=== PATIENT | female | born 1955 | race Caucasian/White ===

== ENCOUNTER 2023-12-09 06:33 | Observation (INO) ==
--- NOTE | 2023-12-06 08:55 | Anesthesiology Consultation ---
Date of Service December 06, 2023 Assessment & Plan (1) Encounter for pre-operative examination: - Case discussed in detail with Dr. Connelly who advised check CBC with diff, type and screen and EKG STAT am DOS. Alexandru with blood bank advised will need blood type checked DOS and he will have an extra unit of platelets available for DOS. Surgeon's office made aware of above plan and that if Dr. Mendez would like more than 1 unit of platelets available their office will need to notify myself to relay to blood bank or speak directly with blood bank. OR made aware to bring patient in one hour early per Alexandru with blood bank. Patient is otherwise acceptable to proceed pending above DOS. - thrombocytopenia: platelets 09/2023 were at 53k. No CBC with diff received from [facility] with other labs and per electromyographic technician at [facility] there is not an updated CBC since 10/08/2023. The surgeon's office advised patient forgot to have labs done and cannot have them done today. - Per test director on 11/28/23: No known infectious disease contacts, current infectious disease symptoms in past 10 days or COVID positive test result in the past 30 days. Chart Review Chart Review: Patient NOT seen in Pre Admission Testing History Surgery Operation Date: 12/09/23 09:30 Proposed Procedures p Bilateral Breast Mastectomy with Right Axillary [place] Node Biopsy, Possible Left Axillary [place] Node Biopsy - Khadar Mendez, Height/Weight Height: 5 ft 3 in Weight: 91.172 kg Allergies Allergy/AdvReac Type Severity Reaction Status Date / Time adhesive Allergy Unknown blisters, Verified 11/28/23 13:24 redness Penicillins Allergy Unknown Rash Verified 11/28/23 13:24 Medications Home Medications Medication Instructions Recorded Confirmed Last Taken aspirin 81 mg tablet,delayed 81 mg PO DAILY 09/30/23 11/28/23 Unknown release calcium carb-vit D3-minerals 600 1 tab PO DAILY 09/30/23 11/28/23 Unknown mg calcium-200 unit tablet levothyroxine 50 mcg capsule 50 mcg PO QAM 09/30/23 11/28/23 Unknown rosuvastatin 5 mg tablet 5 mg PO QAM 09/30/23 11/28/23 Unknown sucralfate 1 gram tablet 1 g PO BID 09/30/23 11/28/23 Unknown biotin 5 mg capsule 5 mg PO DAILY 11/28/23 11/28/23 Unknown Past Medical History Medical History (Updated 12/06/23 @ 08:57 by Cheyanne Brown PA-C) Arthritis Breast cancer right, 09/2023 and on left 2003 GERD (gastroesophageal reflux disease) Hyperlipidemia Hypothyroidism Past Family History Family History Father Cancer Diabetes Brother Cancer Mother Heart disease Grandfather Stroke Past Surgical History Surgical History Hx of appendectomy (~1980) Hx of colonoscopy Hx of lymph node excision (2003) left S/P lumpectomy of breast (2003) Tubal ligation status (~1979) Social History Smoking Status: Never smoker Do You Dip or Chew Tobacco: No Hx Alcohol Use: No Hx Substance Use: No substance use type: does not use Testing Laboratory Results 11/02/23 SODIUM: 144 POTASSIUM: 4.0 CHLORIDE: 108 CO2: 26 BUN: 13 CREATININE: 0.9 GLUCOSE: 103
[~2023-12-09 06:33] MED LIST: ALLERGY Noted to ORDERED Medication SCH
[2023-12-09] MEDS: LACTATED RINGER'S 1,000 ML IV SCH ×2 (07:33→20:59)
[2023-12-09] MEDS: LR 15ML/HR IV SCH (07:33)
--- NOTE | 2023-12-09 11:25 | Nuclear Medicine Report ---
LYMPHOSCINTIGRAPHY CLINICAL HISTORY: Bilateral breast cancer. PROCEDURE: Using standard sterile technique, 4 intradermal and one deep injection of 615.52 uCi of Ly mphoseek was placed in the right breast. The patient tolerated the procedure well. There were no imme diate complications. The patient was subsequently transported to the surgical suite. No imaging was o btained at the referring physician's request. IMPRESSION: Injection of 615.52 uCi of Lymphoseek in the right breast. ACT 112: Negative or not required by law. Electronically signed by: Devang Chavez M.D. 12/09/2023 11:23 AM
--- NOTE | 2023-12-09 11:58 | Nuclear Medicine Report ---
LYMPHOSCINTIGRAPHY CLINICAL HISTORY: Bilateral breast cancer. PROCEDURE: Using standard sterile technique, 4 intradermal and one deep injection of 607.54 uCi of Ly mphoseek was placed in the left breast. The patient tolerated the procedure well. There were no immed iate complications. The patient was subsequently transported to the surgical suite. Postprocedural im aging demonstrates left axillary davy uptake. An indelible marker was placed on the skin superficial to one of the axillary lymph nodes. IMPRESSION: Completed injection of Lymphoseek in the left breast. Lymph nodes with tracer uptake were noted within the axilla. A marker was used to anya the skin superficial to one of the lymph nodes. ACT 112: Negative or not required by law. Electronically signed by: Devang Chavez M.D. 12/09/2023 11:57 AM
--- NOTE | 2023-12-09 12:47 | Communication Note ---
Date of Service: December 09, 2023 12/06/2023-EKG-SR@ 65
[2023-12-09] MEDS ORDERED: HYDROmorphone INJ 1 MG/ML SYRINGE IV PRN (12:52)
[2023-12-09] MEDS ORDERED: ONDANSETRON INJ 2 MG/ML 2 ML VIAL IV PRN ×2 (12:52→20:03)
[2023-12-09] MEDS ORDERED: FLUMAZENIL 0.1 MG/1 ML 10 ML VIAL IV PRN (12:52)
[2023-12-09] MEDS ORDERED: PROMETHAZINE HCL 6.25 MG in SODIUM CHLORIDE 0.9% 50 ML IV PRN (12:52)
[2023-12-09] MEDS ORDERED: fentaNYL citrate PF 100 MCG/2 ML VIAL IV PRN (12:52)
[2023-12-09] MEDS ORDERED: ePHEDrine sulfate 50 MG/ML AMP IV PRN (12:52)
[2023-12-09] MEDS ORDERED: NALOXONE HCL 0.4 MG/1 ML VIAL/CARP IV PRN (12:52)
[2023-12-09] MEDS ORDERED: LABETALOL HCL IV 5 MG/ML 20ML IV PRN (12:52)
[2023-12-09] MEDS ORDERED: ATROPINE SULFATE 0.1 MG/ML 10ML SYR IV PRN (12:52)
--- NOTE | 2023-12-09 15:10 | History & Physical Report ---
Date of Service December 09, 2023 Assessment & Plan (1) Breast cancer, right: Plan: 5y/o female with bilateral breast invasive ductal carcinoma, positive right lymph node on biopsy, lymphoscintigraphy shows bilateral axillary uptake. plan for bilateral breast mastectomy with right axillary sentinel lymph node biopsy, and possible left axillary lymph node biopsy risks discussed to include but not limited to bleeding, infection, positive margins, recurrence, damage to surrounding structures, seroma/hematoma, need for future or more extensive surgery, and risks of anesthesia return precautions given, call with questions or concerns (2) Malignant neoplasm of upper-outer quadrant of left breast in female, estrogen receptor positive: (3) History of left breast cancer: (4) Hypothyroidism: (5) Hyperlipemia: (6) GERD (gastroesophageal reflux disease): History of Present Illness Primary Care Provider: Prabhakar Madrid PA-C 68-year-old female with bilateral breast cancer. History of left breast lumpectomy and axillary dissection followed by chemotherapy and radiation therapy. She presented with a mass in her right breast, biopsy-proven invasive ductal carcinoma, ER positive, SD negative, HER2/daniel negative. She also had a positive lymph node following core biopsy on the right axilla. On the left she had an additional lesion biopsied which showed infiltrative ductal carcinoma, ER/SD positive, HER2/daniel negative. She is otherwise healthy for age, and takes a baby aspirin but no other blood thinners. She does have some mild lymphedema on the left. She underwent lymphoscintigraphy this morning which confirmed uptake in both axilla Allergies Allergy/AdvReac Type Severity Reaction Status Date / Time adhesive Allergy Unknown blisters, Verified 12/09/23 07:02 redness Penicillins Allergy Unknown Rash Verified 12/09/23 07:02 Home Medications Medication Instructions Recorded Confirmed Type aspirin 81 mg tablet,delayed 81 mg PO DAILY 09/30/23 12/09/23 History release calcium carb-vit D3-minerals 600 1 tab PO DAILY 09/30/23 12/09/23 History mg calcium-200 unit tablet (Calcium 600 + Minerals) levothyroxine 50 mcg capsule 50 mcg PO QAM 09/30/23 12/09/23 History rosuvastatin 5 mg tablet 5 mg PO QAM 09/30/23 12/09/23 History sucralfate 1 gram tablet (Carafate) 1 g PO BID 09/30/23 12/09/23 History biotin 5 mg capsule 5 mg PO DAILY 11/28/23 12/09/23 History Past Med/Surg History Problem List Encounter for pre-operative examination Malignant neoplasm of upper-outer quadrant of left breast in female, estrogen receptor positive Abnormal MRI, breast History of left breast cancer Breast cancer, right Breast cancer GERD (gastroesophageal reflux disease) Arthritis Hyperlipemia Hypothyroidism Medical History Arthritis Breast cancer right, 09/2023 and on left 2003 GERD (gastroesophageal reflux disease) Hyperlipidemia Hypothyroidism Surgical History Hx of appendectomy (~1980) Hx of colonoscopy Hx of lymph node excision (2003) left S/P lumpectomy of breast (2003) Tubal ligation status (~1979) Family History Father Cancer Diabetes Brother Cancer Mother Heart disease Grandfather Stroke Social History Smoking Status: Never smoker Second Hand Exposure: No; Do You Dip or Chew Tobacco: No; Tobacco Cessation Education Requested by Patient: No Hx Alcohol Use: No Hx Substance Use: No Preferred Language: Tamazight Communication Ability: Effective 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 Beliefs That Will Affect Care: None marital status: Current Living Situation: Spouse How many Children do You have: 4 Other Information That Helps Us Care for You: No Feels Safe at Home: Yes Safety Concerns: Feels Safe At This Time during the past year weight has: remained stable Assistive Devices: Denture - Upper and Glasses Review of Systems Review of Systems: All systems reviewed & are unremarkable except as noted in HPI & below Physical Exam Constitutional: WD/WN, vitals as above + obese Respiratory: normal respiratory effort, lungs clear to auscultation Cardiovascular: RRR, no murmur, no edema Chest (Breasts): Additional Comments: No dominant or discrete masses palpable in either breast. Scar in left breast from prior lumpectomy. Results & Data Results & Data Vital Signs (Past 12 Hours) Vital Signs Temp Pulse Resp BP Pulse Ox O2 Del Method 12/09/23 07:10 36.5 C 72 20 146/82 H 94 Room Air Laboratory Results Pathology results reviewed Diagnostic Findings PET scan personally viewed and interpreted and agree with the assessment of no distant metastasis PG Care Time/CCT Total # of Minutes Spent Total Time Spent with Patient: Total time spent is greater than 50% in coordination of care (as documented) at patient's floor/unit and/or counseling patient: Coding Level of Care Code 03152 INT INP/OBS CARE 2/55MIN Diagnoses Breast cancer, right C50.911 Malignant neoplasm of upper-outer quadrant of left breast in female, estrogen receptor positive C50.412; Z17.0 History of left breast cancer Z85.3 Hypothyroidism E03.9 Hyperlipemia E78.5 GERD (gastroesophageal reflux disease) K21.9
[2023-12-09] MEDS ORDERED: fentaNYL citrate PF 100 MCG/2 ML VIAL ONE ×2 (15:18→16:12)
[2023-12-09] MEDS ORDERED: MIDAZOLAM HCL 1 MG/ML 2ML VIAL ONE (15:18)
[2023-12-09] MEDS ORDERED: PROPOFOL IV EMULSION 10 MG/ML 20 ML VIAL IV ONE (16:13)
[2023-12-09] MEDS ORDERED: DROPERIDOL 5 MG/2 ML VIAL ONE (16:13)
[2023-12-09] MEDS ORDERED: ONDANSETRON INJ 2 MG/ML 2 ML VIAL ONE ×2 (16:13→18:22)
[2023-12-09] MEDS ORDERED: DEXAMETHASONE SOD INJ 4 MG/ML VIAL ONE (16:13)
[2023-12-09] MEDS ORDERED: ROCURONIUM BROMIDE 10 MG/ML 5 ML VIAL IV ONE (16:13)
[2023-12-09] MEDS ORDERED: LIDOCAINE 2% 2 ML VIAL/AMP(20MG/ML) INFIL ONE (16:13)
[2023-12-09] MEDS ORDERED: HYDROmorphone INJ 2 MG/ML SYR/VIAL ONE (16:25)
[2023-12-09] MEDS ORDERED: SODIUM CHLORIDE 0.9% PF INJ 10 ML VIAL ONE (16:25)
[2023-12-09] MEDS ORDERED: ePHEDrine sulfate 50 MG/5 ML SYR ONE (16:42)
[2023-12-09] MEDS: ceFAZolin 2000MG 2,000 MG/15 ML SYR IV ONE (17:34)
[2023-12-09] MEDS ORDERED: NEOSTIGMINE METHYLSULFATE 1 MG/ML 10ML VIAL ONE (18:42)
[2023-12-09] MEDS ORDERED: GLYCOPYRROLATE 0.2 MG/ML VIAL ONE (18:42)
[2023-12-09] MEDS: BUPIVACAINE 0.5 % 5 MG/1 ML MPF 30ML VIAL ONE (18:51)
[2023-12-09] MEDS: BUPIVACAINE LIPOSOME 1.3% 266 MG/20 ML VIAL ONE (18:51)
--- NOTE | 2023-12-09 19:16 | Operative Report ---
PG Post Operative Report Pre & Post Diagnosis Operation Date: 12/09/23 09:30 Pre-Op Diagnosis: Right Breast Cancer, Malignant neoplasm of upper-outer quadrant of left breast in female Post-Op Diagnosis: Right Breast Cancer, Malignant neoplasm of upper-outer quadrant of left breast in female I identified the patient and participated in the time-out.: Yes Procedure Operation Date: 12/09/23 09:30 Actual Procedures p Bilateral Breast Mastectomy with Right Axillary [place] Node Biopsy(Bilateral) - Garfield Han DO, STORM Surgeon Garfield Han DO, STORM Travel Med Surg Rn Mj Rodriguez Estimated Blood Loss 50 Findings Consistent with Post-Op Diagnosis Unable to localize a sentinel lymph node on the left. Bilateral mastectomies performed. Right axillary sentinel lymph node biopsy performed. Exparel injected, good hemostasis. Specimens Left breast mastectomy Additional left breast tissue Right breast mastectomy Right axillary sentinel lymph nodes Right axillary fat Drains 10 mm JOSE drains bilateral mastectomy beds Anesthesia Type General Complications none Disposition Accompanied Patient To Recovery: No Disposition: Recovery Room Indications 68-year-old female with history of left breast cancer status post lumpectomy with axillary lymph node dissection and radiation, now with new right breast cancer with positive lymph node in the right axilla and biopsy along with new left breast cancer. Plan for bilateral mastectomy with right axillary sentinel lymph node biopsy and possible left axillary sentinel lymph node biopsy. The risks of the procedure were discussed, all questions were answered, and the patient agreed to proceed with surgery as planned. Description of Procedure The patient had initially had a Samantha scouts placed in the right breast prior to electing for mastectomy. The right breast was examined with a Samantha scouts probe and signal was returned. The patient had a sentinel lymph node injection performed in both breasts prior to the procedure. Lymphoscintigraphy was performed to the left due to her history of prior axillary lymph node dissection , and a weakly positive lymph node was identified and marked. The bilateral axilla were examined with a gamma probe and confirmed uptake into the right axilla, but there was minimal signal on the left. The patient was properly identified, consented, and taken to the operating room where she was placed in the supine position. General endotracheal anesthesia was induced. SCDs and a safety belt were placed. Preoperative antibiotics were administered. The patient's bilateral chest and axilla was prepped and draped in the standard sterile fashion. Surgical timeout was performed and all parties were in agreement that this was the correct patient and procedure to be performed and we continued as planned. We began dissection on the left. Transversely oriented elliptical incision was made to encompass the nipple areolar complex. Subcutaneous flaps were raised to the clavicle superiorly, the sternum medially, and the rectus sheath inferiorly. The breast was then taken off the chest wall including the pectoralis fascia from inferior medial to superior lateral. This dissection was then taken down to the lateral chest wall ensuring that we resected the axillary tail of Schmitt. The dissection was completed and the specimen was removed. The specimen was oriented. I then examined the left axilla with the gamma probe and was unable to localize any specific left axillary lymph node. The wound was irrigated and hemostasis achieved. The wound was packed and we turned our attention to the right side. A transversely oriented elliptical incision was made that encompassed the n ipple-arreolar complex on the right. Flaps were raised to the clavicle superiorly, the sternum medially, and the rectus sheath inferiorly. The breast was then taken off the chest wall including the pectoralis fascia from superior medial to inferior lateral. This dissection was then taken down to the lateral chest wall ensuring that we resected the axillary tail of Schmitt. The dissection was completed and the specimen was removed. The specimen was oriented. Some additional inferior breast tissue was excised and sent to pathology. The right axilla was then examined with a gamma probe and revealed multiple sentinel nodes. The highest count sentinel node measured around 400 ex vivo. Several more lymph nodes were identified that measured greater than 10%. These were also resected. The proximal and distal blood supply were ligated for each lymph node with 3-0 silk ties. The axilla was examined and was quiet, there was some weak signal from underneath the pectoralis minor. Additional right axillary skin and fat was taken to allow for better symmetry with the other side. The right mastectomy specimen was also examined with a Samantha scouts probe, and returned a good signal. The wound was irrigated and hemostasis was confirmed. Two 10 mm JOSE drains were placed, one in each mastectomy bed. These exited inferior and lateral to the incision and were secured into place with 2-0 nylon sutures. Exparel mixed with 0.5% Marcaine were injected in the mastectomy flaps. The skin was closed with interrupted 3-0 Vicryl deep dermal sutures, followed by 4-0 Monocryl running subcuticular suture. Dermabond was placed over the wound. Fluffed gauze, ABDs, drain sponges, and a chest binder were placed The patient was extubated in the operating room and taken to the PACU where she recovered without apparent incident. All sponge, instrument and needle counts were correct at the conclusion of the procedure. The patient tolerated the procedure well. The nurse practitioner was present and scrubbed for the entirety the case. She was critical in positioning the patient, prepping and draping, retraction and exposure, performance of the mastectomies, closure of the incisions, and placement of the dressings. I attest to the content of the Intraoperative Record and any orders documented therein. Any exceptions are noted below.
[2023-12-09] MEDS ORDERED: MoRPHine SULFATE 2 MG/ML CARP IV PRN (20:03)
[2023-12-09] MEDS ORDERED: MoRPHine SULFATE 4 MG/ML 1 ML CARP\\VIAL IV PRN (20:03)
[2023-12-09] MEDS ORDERED: ACETAMINOPHEN 1,000 MG/100 ML VIAL IV PRN (20:03)
[2023-12-09] MEDS ORDERED: ACETAMINOPHEN 325 MG TAB PO PRN (20:03)
[2023-12-09] MEDS ORDERED: oxyCODONE HCL IR 5 MG TAB (IMMEDIATE RELEASE) PO PRN ×2 (20:03)
--- NOTE | 2023-12-09 20:33 | Anesthesiology Progress Note ---
Date of Service December 09, 2023 Anesthesia Post Procedure Vital Signs Vital Signs: Temp Pulse Pulse Resp BP Pulse Ox Pulse Ox 12/09/23 20:00 94 12/09/23 20:00 36.5 C 63 16 133/77 94 12/09/23 19:45 36.3 C L 64 15 128/73 96 12/09/23 19:35 82 14 122/74 97 12/09/23 19:25 69 19 138/78 100 12/09/23 19:15 77 12 111/70 96 12/09/23 19:08 36.3 C L 85 12 126/73 90 12/09/23 07:10 36.5 C 72 20 146/82 H 94 O2 Del Method O2 Del Method O2 Flow Rate O2 Flow Rate 12/09/23 20:00 Nasal Cannula 2 12/09/23 20:00 Nasal Cannula 2 12/09/23 19:45 Nasal Cannula 2 12/09/23 19:35 Room Air 12/09/23 19:25 Oxymask 10 12/09/23 19:15 Oxymask 10 12/09/23 19:08 Oxymask 10 12/09/23 07:10 Room Air Transfer of Care Handoff Completed per policy Notes Mental Status: alert / awake / arousable and participated in evaluation Nausea / Vomiting: adequately controlled Pain: adequately controlled Airway Patency, RR, SpO2: stable & adequate BP & HR: stable & adequate Hydration State: stable & adequate Neuraxial Anesthesia: was administered and sensory block is resolving Anesthetic Complications: no major complications apparent and Pt Satisfied with anesthetic care
[2023-12-09] MEDS: SUCRALFATE 1 GM TAB PO SCH (20:59)
[2023-12-10] MEDS: ceFAZolin 2000MG 2,000 MG/15 ML SYR IV SCH (01:05)
[2023-12-10] MEDS: LEVOTHYROXINE SODIUM 50 MCG TABLET PO SCH (05:47)
[2023-12-10 07:53] LABS: BUN Creatinine Ratio 19.5 (10-20); Calcium 8.6 mg/dl (8.6-10.3); Creatinine Clr Calc Pharmacy 68.3 ml/min; Est GFR (Non-African American) 72.5 ml/min; Potassium 4.2 mmol/L (3.5-5.1)
[2023-12-10 08:03] LABS: Hematocrit (blood only) 32.2 % (37.0-47.0); Hemoglobin 10.5 g/dl (12.0-16.0); Mean Corpuscular Hemoglobin 28.8 pg (25.0-34.0); Mean Corpuscular Hgb Conc 32.6 g/dL (32.0-36.0); Mean Corpuscular Volume 88.5 fL (80.0-100.0); RDW Standard Deviation 48.3 fL (36.4-46.3); Red Blood Count 3.64 M/uL (4.20-5.40); White Blood Count 14.27 K/ul (4.8-10.8)
[2023-12-10 08:04] LABS: Basophils # (auto) 0.03 K/uL (0.00-0.20); Basophils % (auto) 0.2 %; Immature Granulocytes # (auto) 0.06 K/uL (0.01-0.20); Immature Granulocytes % (auto) 0.4 %; Lymphocytes # (auto) 1.84 K/uL (1.20-3.40); Lymphocytes % (auto) 12.9 %; Monocytes # (auto) 1.36 K/uL (0.11-0.59); Monocytes % (auto) 9.5 %; Neutrophils # (auto) 10.98 K/uL (1.40-6.50)
--- NOTE | 2023-12-10 08:38 | Surgery Progress Note ---
Date of Service December 10, 2023 Assessment & Plan (1) H/O bilateral mastectomy: Plan: POD 1 bilateral mastectomy Patient sitting up in chair eating breakfast expected post operative pain chest binder taken down and incisional areas assessed. CDI dermabond under gauze padding Pt to leave in place another day bilateral Анна drains seriosangious drainage Nursing to show pt how to care for drains prior to d/c WBC elevated at 14, likely reactive to extensive surgery, VSS afebrile pt desires to be discharge , may leave after seen by Dr Han this afternoon Admission and Anticipated Discharge Date Admission Date: December 09, 2023 Supervising Physician Co-Signing Physician Notes Patient seen and examined, labs and imaging reviewed, agree with above. POD #1 bilateral mastectomy with right sentinel lymph node biopsy, doing well, no pain. On exam afebrile with stable vitals. Incisions without infection, flaps viable, some bruising to the upper outer quadrant of the right breast. АННА drain serosanguineous. DC to home, wound care instructions, activity striction's, and return precautions given. Follow-up for drain removal in the next week. Follow-up with me in 2 weeks. Patient will need referral to oncology as an outpatient. Subjective pt doing well, mild post operative discomfort tolerating diet Review of Systems Constitutional: no fever and no chills Respiratory: no dyspnea Cardiovascular: no chest pain Gastrointestinal: no nausea and no vomiting Integumentary: + wounds Physical Exam Constitutional: cooperative and comfortable; no acute distress Respiratory: normal respiratory effort and able to speak in complete sentences; no respiratory distress Results & Data Vital Signs (Past 12 Hours) Vital Signs Temp Pulse Resp BP Pulse Ox O2 Del Method O2 Flow Rate 12/10/23 07:00 97.3 F L 76 18 109/63 91 Room Air 12/10/23 03:14 97.0 F L 95 H 16 106/67 92 Room Air 12/09/23 23:00 97.7 F 86 16 121/77 95 Room Air 12/09/23 22:00 97.5 F L 77 18 107/71 95 Nasal Cannula 2 12/09/23 21:00 97.3 F L 81 18 114/73 94 Nasal Cannula 2 Results CBC w Diff Results: RBC 3.64 M/uL (4.20-5.40) L 12/10/23 WBC 14.27 K/ul (4.8-10.8) H 12/10/23 Hgb 10.5 g/dl (12.0-16.0) L 12/10/23 Hct 32.2 % (37.0-47.0) L 12/10/23 MCV 88.5 fL (80.0-100.0) 12/10/23 MCH 28.8 pg (25.0-34.0) 12/10/23 MCHC 32.6 g/dL (32.0-36.0) 12/10/23 RDW Standard Deviation 48.3 fL (36.4-46.3) H 12/10/23 RDW Coefficient of Variation 15.0 % (11.5-14.5) H 12/10/23 Plt Count K/uL (130-400) 12/10/23 MPV fL (9.4-12.4) 12/10/23 Neutrophils (%) (Auto) 77.0 % 12/10/23 Lymphocytes (%) (Auto) 12.9 % 12/10/23 Monocytes # (Auto) 1.36 K/uL (0.11-0.59) H 12/10/23 Eosinophils # (Auto) 0.00 K/uL (0.00-0.50) 12/10/23 Immature Granulocyte % (Auto) 0.4 % 12/10/23 Neutrophils # (Auto) 10.98 K/uL (1.40-6.50) H 12/10/23 Lymphocytes # (Auto) 1.84 K/uL (1.20-3.40) 12/10/23 Monocytes # (Auto) 1.36 K/uL (0.11-0.59) H 12/10/23 Eosinophils # (Auto) 0.00 K/uL (0.00-0.50) 12/10/23 Basophils # (Auto) 0.03 K/uL (0.00-0.20) 12/10/23 Immature Granulocyte # (Auto) 0.06 K/uL (0.01-0.20) 4 PG Care Time/CCT Total # of Minutes Spent Total Time Spent with Patient: Total time spent is greater than 50% in coordination of care (as documented) at patient's floor/unit and/or counseling patient: Coding Level of Care Code 19146 Post Operative Follow-Up Diagnoses H/O bilateral mastectomy Z90.13
[2023-12-10] MEDS: ROSUVASTATIN CALCIUM 5 MG TAB PO SCH (08:42)
[2023-12-10 11:06] VITALS: BP 125/74; PULSE 102; RESP 17; TEMP 97.7; O2SAT 92
--- NOTE | 2023-12-11 10:37 | Discharge Summary ---
Date of Service December 10, 2023 Admission HPI Per Admitting Provider 68-year-old female with bilateral breast cancer. History of left breast lumpectomy and axillary dissection followed by chemotherapy and radiation therapy. She presented with a mass in her right breast, biopsy-proven invasive ductal carcinoma, ER positive, IL negative, HER2/daniel negative. She also had a positive lymph node following core biopsy on the right axilla. On the left she had an additional lesion biopsied which showed infiltrative ductal carcinoma, ER/IL positive, HER2/daniel negative. She is otherwise healthy for age, and takes a baby aspirin but no other blood thinners. She does have some mild lymphedema on the left. She underwent lymphoscintigraphy this morning which confirmed uptake in both axilla Principal Diagnosis bilateral breast mastectomy Discharge Exam Constitutional cooperative and comfortable; no acute distress Respiratory normal respiratory effort and able to speak in complete sentences; no respiratory distress Skin post operative bilateral mastectomy Discharge Data Allergies Allergy/AdvReac Type Severity Reaction Status Date / Time adhesive Allergy Unknown blisters, Verified 12/09/23 07:02 redness Penicillins Allergy Unknown Rash Verified 12/09/23 07:02 Procedures Performed Operation Date: 12/09/23 09:30 Actual Procedures p Bilateral Breast Mastectomy with Right Axillary [place] Node Biopsy(Bilateral) - Garfield Han DO, FACS Hospital Course (1) H/O bilateral mastectomy: Patient is a pleasant 68 yo female that presented to the [facility] for a bilateral breast mastectomy with . She tolerated the procedure well, see operative note for details. Post surgery she was admitted to the hospital for overnight care and observation. Her diet was advanced, she was tolerating without nausea and vomiting, her pain was controlled, VSS, she was shown how to care for her bilateral JOSE drains and was deemed stable for discharge on post operative day one 12/10/23. She was given return precautions, follow up recommendation, and a prescription for oral pain medication. All questions answered. Total Time Total Time Spent Total Time Spent (In Minutes): 10 Discharge Plan Discharge Items Patient Disposition: Home - Self-Care Reason For Visit: right breast cancer, injection only for SN bx Discharge Diagnosis: bilateral breast mastectomy with right axillary lymph node biopsy Activity: Per Instructions section Lifting: No more than 5 pounds Lifting Comment: do not lift your arms above your head Bathing Comment: cover your drain sites when showering Exercise/Sports: Wait until after follow-up appointment Non-emergency contact: Surgeon Call non-emergency contact if: your symptoms worsen, your pain is worsening, you have a fever, your temperature is above 101.5, your wound has increased redness, your wound has increased drainage and your wound pain has increased Follow-up/Referrals: Garfield Han DO, FACS [Physician] - (call office for a follow up in 1-2 weeks ) Prabhakar Madrid PA-C [Primary Care Provider] - Diet: Regular Addtl Attending Provider Instructions: YOu have skin glue over your incisions called dermabond. You may purchase Tylenol over the counter if needed for additional pain control over the next few days. Take per manufacturers instructions Keep chest binder in place for 2 days, then you may take it off and wear a compression bra or continue to wear the reji wrap. You will be discharged to home with surgical drains in place. Keep to bulb suction. Empty drain 2-3x/daily and record output. Once less than 30cc/day over 48 hrs you may call the office to consider removal by one of the nurses prior to your visit with the surgeon. Cover your drains when showering . Pending Studies at Discharge: Yes Studies:: surgical pathology Stand-Alone Forms: My [facility] Medications and DC Order Prescriptions: New oxycodone 5 mg tablet 5 - 10 mg PO .[id number] MDD no more than 6 tabs in 24hours PRN (Reason: pain) Qty: 15 0RF Continued sucralfate [Carafate] 1 gram tablet 1 g PO BID rosuvastatin 5 mg tablet 5 mg PO QAM levothyroxine 50 mcg capsule 50 mcg PO QAM Calcium 600 + Minerals 600 mg calcium- 200 unit tablet 1 tab PO DAILY aspirin 81 mg tablet,delayed release (DR/EC) 81 mg PO DAILY biotin 5 mg Capsule 5 mg PO DAILY Discharge Orders: Discharge Order (Routine); Ordered 12/10/23 Ordered By: Mj Cooper/Other Patient Handouts: What Is Breast Cancer?, Mastectomy: After Surgery, Mastectomy: Follow-Up Care, Post Op Drain Emptying Steps Admission Data Admit Date/Time: 12/09/23 18:54 Attending Provider: Garfield Han Admit Provider: Garfield Han Primary Care Provider: Prabhakar Madrid Other Interventions: Discharge Summary Assessment (RN) Last Done: 12/10/23 09:44 Supervising Physician Co-Signing Physician Notes Patient seen and examined, labs and imaging reviewed, agree with above. POD #1 bilateral mastectomy with right sentinel lymph node biopsy, doing well, no pain. On exam afebrile with stable vitals. Incisions without infection, flaps viable, some bruising to the upper outer quadrant of the right breast. JOSE drain serosanguineous. DC to home, wound care instructions, activity striction's, and return precautions given. Follow-up for drain removal in the next week. Follow-up with me in 2 weeks. Patient will need referral to oncology as an outpatient. Coding Level of Care Code 41095 IN/OBS DISCH 30 MIN/LESS Diagnoses H/O bilateral mastectomy Z90.13
== END 2023-12-10 13:10 | disposition home or self-care (01) ==
LOC: 3N 06:33 → ASU 06:33